=== PATIENT | male | born 1990 | race Caucasian/White ===

== ENCOUNTER 2017-10-20 18:55 | Emergency (ER) | payer BC, MEDICAID ==
[2017-10-20] MEDS ORDERED: Diphtheria,Pertussis(Acell),Tetanus Vaccine 0.5 ML SDV ONE (19:17)
[2017-10-20 19:19] LABS: CHLORIDE,CL 100 mmol/L (98-107); SODIUM,NA 136 mmol/L (136-145)
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
[2017-10-20] MEDS ORDERED: Sodium Chloride 0.9% 1,000 ML IV ONE (20:00)
[2017-10-20] MEDS ORDERED: Acetaminophen 325 MG Tab PO ONE (20:35)
== END 2017-10-20 21:10 | disposition home or self-care (01) ==
LOC: LL.ED 18:55
DX: S02.19XA Other fracture of base of skull, initial encounter for closed fracture (principal); S00.12XA Contusion of left eyelid and periocular area, initial encounter; Z23 Encounter for immunization; Y04.0XXA Assault by unarmed brawl or fight, initial encounter
CPT/HCPCS: 36415; 70450; 70486; 72040; 80053; 85025; 90471; 90715; 96360; 96361; 96372; 99284; J7030

== ENCOUNTER 2019-04-09 11:13 | Emergency (ER) | payer MEDICAID ==
[2019-04-09] MEDS ORDERED: traMADol 50 MG Tab PO ONE (11:32)
[2019-04-09] MEDS ORDERED: Ketorolac 60 MG/2 ML SDV IM ONE (11:32)
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
== END 2019-04-09 11:57 | disposition home or self-care (01) ==
LOC: LL.ED 11:13
DX: K04.7 Periapical abscess without sinus (principal); K02.9 Dental caries, unspecified; Z87.891 Personal history of nicotine dependence
CPT/HCPCS: 96372; 99283; A9270-GY; J1885

== ENCOUNTER 2021-06-29 14:31 | Emergency (ER) | payer SELFPAY ==
[2021-06-29] MEDS ORDERED: Bacitracin Oint 1 GM U/D Packet TOP ONE (15:11)
== END 2021-06-29 15:50 | disposition home or self-care (01) ==
LOC: LL.ED 14:31
DX: S60.221A Contusion of right hand, initial encounter (principal); W22.09XA Striking against other stationary object, initial encounter
CPT/HCPCS: 73130-RT; 99283

== ENCOUNTER 2024-03-03 12:10 | Emergency (ER) | payer OTHER ==
[2024-03-03] MEDS: Take Home: traMADol 50 MG, 4 Tab Pack PO ONE (13:10)
[2024-03-03] MEDS: predniSONE 20 MG Tab PO ONE (13:10)
[2024-03-03] MEDS: Take Home: Orphenadrine 100 MG Tab.ER, 4 Tab Pack PO ONE (13:10)
[2024-03-03] MEDS: Ketorolac 30 MG/ML SDV IM ONE (13:11)
== END 2024-03-03 13:20 | disposition home or self-care (01) ==
LOC: LL.ED 12:10
DX: M54.42 Lumbago with sciatica, left side (principal)
CPT/HCPCS: 96372; 99283; 99284; A9270-GY; J1885; J7512